=== PATIENT | male | born 1970 | race Caucasian/White ===

== ENCOUNTER 2021-03-01 12:24 | Inpatient (IN) | payer OTHER, SELFPAY ==
[2021-03-01] VITALS (16 sets, daily range): BP systolic 164–203; BP diastolic 109–122; PULSE 58–128; RESP 16–20; TEMP 36.6–37.1; O2SAT 95–98; BMI 32.8; BMI 33.2
--- NOTE | 2021-03-01 12:34 | CT_ITS ---
STUDY: CT HEAD STROKE PROTOCOL W/O CONTRAST INJECTION REASON FOR EXAM: Male, 51 years old. Neuro deficit, acute, stroke suspected RADIATION DOSAGE (If Supplied By Facility): CTDIvol = ( 44.99 ) mGy, DLP = ( 779.24 ) mGycm TECHNIQUE: Transaxial CT imaging of the brain was performed without administration of intravenous contrast material. Individualized dose optimization techniques were used for this CT. COMPARISON: No relevant priors. FINDINGS: Normal soft tissue structures. Normal calvarium. Normal size ventricles and extra-axial spaces for the patient''s age. Normal white matter tracts of the cerebral hemispheres. Normal basal ganglia and thalami. Normal brainstem. Normal cerebellum. There is no intracranial hemorrhage. There are no findings of an acute ischemic infarction. Normal visualized paranasal sinuses. CT/STROKE Brain/Head without Cont IMPRESSION: Normal unenhanced CT scan of the brain. N.B. : The above information has been verbally conveyed by Lincoln Hopkins MD to Noel Stark on 03/01/2021 13:13:57 (ET). Electronically Signed: Lincoln Hopkins MD at 13:15 EDT , Service support ,
--- NOTE | 2021-03-01 12:34 | EKG12_ITS ---
Test Reason : LEG NUMBNESS Blood Pressure : / mmHG Vent. Rate : 093 BPM Atrial Rate : 093 BPM P-R Int : 154 ms QRS Dur : 088 ms QT Int : 334 ms P-R-T Axes : 050 080 012 degrees QTc Int : 415 ms Normal sinus rhythm Normal ECG Confirmed by KIKE BROWNING, NAHUN ([id number]), graphic editor BELL HERRERA ([id number]) on 03/05/2021 9:13:09 AM Referred By: MED Confirmed By:DOROTHY STOKES MD
--- NOTE | 2021-03-01 12:36 | ED.DCSUM_ITS ---
History of Present Illness Chief Complaint: Hypertension Informant: Patient Onset: Days Context: Gradual Onset Timing: Continuous Current Severity: Moderate Maximum Severity: Moderate Narrative: The patient is a 51-year-old male with history of hypertension, who is not on any medications, but presents to the emergency department with elevated blood pressure and left leg weakness and numbness. The patient 3 days ago, he began to have some numbness down his left leg. He states that sometimes he will feel like his thigh is painful. He states is difficult to walk, because he is a hard time finding his leg in space. He states he kicked something with his toe and did not even notice it. He states that over the past few days, he is also had a mild headache and intermittent blurry vision. The patient does have history of hypertension, but again has not been taking medications. He states has not seen a doctor since 2010. He did have prior similar paresthesias in the leg which she had injections for which seemed to help. He denies any trauma. He denies any difficulty urinating or moving his bowels. He does have have a family history of intracerebral hemorrhage. Prior similar symptoms: Yes Recent Illness/Hospitalization: No Past Medical History - Allergies and Home Meds Allergies/Adverse Reactions: Allergies No Known Allergies Allergy (Verified 03/01/21 12:28) Prior records reviewed: Yes Past Medical History: - - HTN Surgical History: noncontributory Smoking Status: Current every day smoker Review of Systems General: Denies: Chills, Fever, Sweats Eyes: Reports: Visual changes - bilaterally. Denies: Diplopia ENT: Denies: Rhinorrhea, Sore throat Cardiovascular: Denies: Chest pain, Palpitations Respiratory: Denies: Dyspnea, Cough, Dyspnea on exertion Gastrointestinal: Denies: Abdominal pain, Nausea, Vomiting, Diarrhea, Melena, Hematochezia Genitourinary: Denies: Dysuria, Hematuria, Frequency Musculoskeletal: Denies: Back pain, Extremity Pain Skin: Denies: Rash, Wounds Neurological: Reports: Parasthesia, Numbness. Denies: Headache, Weakness Physical Exam Vital Signs/Narrative: Vital Signs Temp Pulse Resp BP Pulse Ox 03/01/21 12:25 98.0 F 128 H 18 203/115 H 95 Inital Vital Signs reviewed: Yes General: Well nourished, Well developed, No Acute Distress Head: Normocephalic, Atraumatic Eyes: Perrl, EOMI ENT: Moist mucous membranes, No rhinorrhea Neck: Supple, Nontender Cardiovascular: Regular rate, Regular rhythm, No murmurs Respiratory: No distress, CTA bilaterally, Chest nontender Abdomen: Soft, Nontender, Nondistended, Normal bowel sounds Back: Nontender, Normal Inspection Extremities: Nontender, No edema Skin: Normal color, No rash Neurological: Alert, Oriented x3, Cranial nerves II-XII grossly intact, Normal Strength, Parasthesia, - - Patient is able to oppose gravity with his left lower extremity. He does admit to sensation of weakness. He does have diminished sensation. His NIH is 1. Psychological: Normal affect, Normal Mood Diagnostic/Tx/Re-eval Clinical Impression(s) from Imaging Studies Brain CT 03/01/21 12:34 IMPRESSION: Normal unenhanced CT scan of the brain. N.B. : The above information has been verbally conveyed by Lincoln Hopkins MD to Noel Stark on 03/01/2021 13:13:57 (ET). Electronically Signed: Lincoln Hopkins MD at 13:15 EDT , Service support , ADDENDUM: 03/01/21 1322 IMPRESSION: Normal unenhanced CT scan of the brain. N.B. : The above information has been verbally conveyed by Lincoln Hopkins MD to Noel Stark on 03/01/2021 13:13:57 (ET). Electronically Signed: Lincoln Hopkins MD at 13:15 EDT , Service support , Chest X-Ray 03/01/21 12:59 IMPRESSION: Normal x-ray examination of the chest. Electronically Signed: Lincoln Hopkins MD at 13:15 EDT , Service support , Abnormal Lab Results 04/03/01/21 03/01/21 12:40 12:40 12:40 WBC 9.3 RBC 5.35 Hgb 16.4 Hct 48.0 MCV 89.7 MCH 30.7 MCHC 34.2 RDW Std Deviation 43.6 RDW Coeff of Reynaldo 13.4 Plt Count 238 MPV 9.9 Immature Gran % (Auto) 0.600 Neut % (Auto) 70.6 H Lymph % (Auto) 20.7 [place] % (Auto) 6.4 Eos % (Auto) 1.1 Baso % (Auto) 0.6 Absolute Neuts (auto) 6.6 Absolute Lymphs (auto) 1.93 Nucleated RBC % 0 PT 12.9 INR 1.0 APTT 26.0 Sodium 137 Potassium 3.8 Chloride 105 Carbon Dioxide 28.0 Anion Gap 4 L BUN 10 Creatinine 1.02 Estim Creat Clear Calc 81.00 Est GFR (MDRD) Af Amer 99 Est GFR (MDRD) Non-Af 82 BUN/Creatinine Ratio 9.8 L Glucose 115 H Calcium 9.1 Troponin I < 0.015 POC Glucose 03/01/21 12:49 WBC RBC Hgb Hct MCV MCH MCHC RDW Std Deviation RDW Coeff of Reynaldo Plt Count MPV Immature Gran % (Auto) Neut % (Auto) Lymph % (Auto) [place] % (Auto) Eos % (Auto) Baso % (Auto) Absolute Neuts (auto) Absolute Lymphs (auto) Nucleated RBC % PT INR APTT Sodium Potassium Chloride Carbon Dioxide Anion Gap BUN Creatinine Estim Creat Clear Calc Est GFR (MDRD) Af Amer Est GFR (MDRD) Non-Af BUN/Creatinine Ratio Glucose Calcium Troponin I POC Glucose 116 H - Rhythm Strip Rhythm Strip: Sinus Rhythm Rate: 90 Ectopy: None - EKG Initial EKG Interpretation: Sinus Rhythm, No Acute Injury Pattern Prior: No Prior - Medical Decision Making The patient presents with 3 days of leg weakness. Is not been intermittent. He is also been markedly hypertensive. His NIH is 1 for the paresthesias of the leg. I cannot appreciate any weakness. He has normal pulses. He has normal reflexes. Patient underwent stroke work-up. Stroke team was not activated given greater than 24 hours of symptoms as he was not a TPA candidate. Noncontrast head CT shows no acute abnormality. Metabolic work-up was also unremarkable. However, given the patient's family history of cerebral hemorrhage, rather significant hypertension history without medication, and focal neurologic symptoms I do feel it would benefit from observation. The patient was discussed with the hospitalist. Impression 1. Hypertension 2. Left leg paresthesias
[2021-03-01 12:49] LABS: Absolute Lymphocyte Count 1.93 X10^3/uL (0.83-4.51); Absolute Neutrophil Count 6.6 X10^3/uL (2.0-7.7); Basophil# 0.06 X10^3/uL; Basophil% 0.6 % (0-1); Eosinophils% 1.1 % (0-5); Hemoglobin 16.4 g/dL (13.0-16.5); Lymphocyte # 1.93 X10^3/ul (0.83-4.51); Lymphocyte % 20.7 % (19-41); Mean Corp Hgb Conc 34.2 g/dL (32-36); Mean Corpuscular Hgb 30.7 pg (27.0-32.0); Mean Corpuscular Volume 89.7 fL (80-94); Mean Platelet Vol. 9.9 fl (6.2-12.0); Monocyte% 6.4 % (0-10); NRBC Flagged by Analyzer 0 % (0-5); Neutrophil # 6.56 X10^3/uL (2.7-7.7); Neutrophil % 70.6 % (47-70); Platelet Count 238 K/mm3 (150-450); RBC Distribution Width CV 13.4 % (11.6-14.6); RBC Distribution Width SD 43.6 fl (35.1-43.9); Red Blood Count 5.35 M/mm3 (4.6-6.2); White Blood Count 9.3 K/mm3 (4.4-11.0)
[2021-03-01 12:57] LABS: Prothrombin Time (Protime)PT. 12.9 SECONDS (11.7-14.9)
--- NOTE | 2021-03-01 12:57 | NURSING ---
NO OLD EKGS
--- NOTE | 2021-03-01 12:59 | RAD_ITS ---
STUDY: X-RAY CHEST REASON FOR EXAM: Male, 51 years old. Neuro deficit, acute, stroke suspected TECHNIQUE: Single AP portable view of the chest. COMPARISON: None. FINDINGS: EKG electrodes are seen. The lungs are clear and expanded. There is no demonstrated pleural abnormality. Normal size heart. Normal mediastinum and girish. Normal visualized pulmonary arteries. Normal visualized aortic arch and descending thoracic aorta. Normal visualized thoracic spine. Normal visualized ribs, clavicles, and shoulders. There is no demonstrated abnormality of the visualized soft tissue structures of the upper abdomen. RAD/Chest 1 View IMPRESSION: Normal x-ray examination of the chest. Electronically Signed: Lincoln Hopkins MD at 13:15 EDT , Service support ,
[2021-03-01 13:01] LABS: Bedside Glucose 116 mg/dL (70-110)
[2021-03-01 13:05] LABS: Anion Gap 4 (5-15); BUN 10 mg/dL (7-18); BUN/Creat Ratio 9.8 RATIO (10-20); Calcium,Total 9.1 mg/dL (8.5-10.1); Chloride 105 mmol/L (98-107); Creatinine, Serum 1.02 mg/dL (0.70-1.30); EST Glomerular Filtration Rate 82 mL/min (>60); Est Glom Filt Rate - Afr Amer 99 mL/min (>60); Glucose 115 mg/dL (74-106); Potassium 3.8 mmol/L (3.5-5.1); Sodium Level 137 mmol/L (136-145)
--- NOTE | 2021-03-01 13:37 | NURSING ---
PCU LEFT LEG WEAKNESS ASHELFAH
--- NOTE | 2021-03-01 13:48 | HP.PCM_ITS ---
Problem List (1) Weakness of left lower extremity Status: Acute (2) Paresthesia of left lower extremity Status: Acute (3) Hypertensive urgency Status: Acute (4) Hypertension Status: Chronic (5) Alcohol abuse Status: Chronic (6) Tobacco abuse Status: Chronic History of Present Illness Date of Admission: 03/01/21 Chief Complaint: Elevated blood pressure, left leg weakness and numbness. The patient is a 51 year old M with past medical history as mentioned above presented to the emergency room because of elevated blood pressure, left leg weakness and numbness. Symptoms started 3 days ago, initially started with some discomfort on the left thigh associated with tingling and numbness, started to go down to the left leg which also became numb and tingly and has been constant since then and he has been difficulty ambulating. He mentioned that his blood pressure has been elevated as well. He had a history of hypertension that was diagnosed years ago but never started on medications. He reported mild throbbing headache that has been going on for the last couple of days, no aggravating or relieving factors. He stated that he did not see a doctor since 2010. He denied trauma. He did mention that he had some back pain in the past but not today. He stated that he had similar paresthesia in the past for which he received back injections which seemed to help. Again today, he denied any back pain. In the emergency department, patient was afebrile, tachycardic, blood pressure was highly elevated, it was 203/115. Routine blood work was unremarkable. EKG revealed normal sinus rhythm, normal TX interval, normal QRS, no acute ischemic changes. Troponin was negative. Chest x-ray showed no acute findings. CT scan brain without contrast showed no acute infarct or hemorrhage. Patient is being admitted for hypertensive urgency and left lower extremity paresthesia and weakness. Past Medical History Past Medical History (Chronic Problems): Chronic Problems Hypertension (Chronic) Alcohol abuse (Chronic) Tobacco abuse (Chronic) Allergies No Known Allergies Allergy (Verified 03/01/21 12:28) Home Medications: Ambulatory Orders Medication Instructions Recorded Acetaminophen [Tylenol Extra 500 mg PO DAILY PRN 03/01/21 Strength] Aspirin/Caffeine [Back-Body Pain 2 - 3 tablet PO TID PRN 03/01/21 Reliever Caplet] Surgical History: noncontributory Psychiatric History: No pertinent psych hx Lives: Spouse/ Significant Other Smoking Status: Current every day smoker Tobacco Use: Cigarettes Alcohol: Heavy Drugs: None - *Family History Maternal History Items: No pertinent history Paternal History Items: No pertinent history Review of Systems Constitutional: Denies: Anorexia, Chills, Fever, Weakness Eyes: Denies: Blurred vision, Double vision, Drainage, Redness HEENT: Reports: Head Aches. Denies: Difficulty Hearing, Ear Pain, Eye Pain, Nasal Congestion, Sore Throat Cardiovascular: Denies: Chest Pain, Chest Pressure, Chest Tightness, Edema, Palpitations, Syncope Respiratory: Denies: Cough, Pleuritic Pain, Shortness of Breath, Sputum production, Wheezing Gastrointestinal: Denies: Abdominal Pain, Constipation, Diarrhea, Nausea, Vomiting Genitourinary: Denies: Dysuria, Frequency, Hematuria Musculoskeletal: Denies: Arm Pain, Back Pain, Foot Pain Skin: Denies: Dryness, Rash Neurological: Reports: Focal weakness, Headaches, Numbness, Tingling. Denies: Balance problems, Double vision, Change in Speech, Slurred speech, Confusion, Incoordination Psychiatric: Denies: Anxiety, Depression Endocrine: Denies: Change in Body Habitus, Polydipsia, Polyuria VTE Information - Inpt Only VTE Present on Admission: No VTE Mechan Device Prophylaxis: None VTE Pharm Prophylaxis ordered?: No Patient Problems: Active and Suspected Problems Weakness of left lower extremity (Acute) Paresthesia of left lower extremity (Acute) Hypertensive urgency (Acute) - Physical Exam Vitals/I&O's: Vital Signs Temp Pulse Resp BP Pulse Ox 98.0 F 104 H 18 170/111 H 98 03/01/21 12:25 03/01/21 13:30 03/01/21 13:30 03/01/21 13:30 03/01/21 13:30 Oxygen Delivery Method Room Air Weight: 210 lb Body Mass Index (BMI) 32.8 Finger Stick Blood Glucose 116 General: Alert, Oriented x3, Cooperative, No apparent distress HEENT: Atraumatic, PERRLA, EOMI, Normocephalic Oral: Moist Mucosa, No Gingival or Mucosal Lesions/ Ulcerations Neck: Supple, No JVD, Negative Carotid Bruits, Trachea Midline, Thyroid Normal Size and Texture Lungs: Clear to auscultation, Normal air movement, No rhonchi, No wheeze, No rales Cardiovascular: Regular rate, Regular Rhythm, Normal S1, Normal S2, PMI Normal Abdomen: Bowel Sounds Present, Soft, Non Tender, Non-Distended, No Hepato- splenomegaly Extremities: No clubbing, No cyanosis, No edema Skin: No rashes, No breakdown Lymphatic: No Cervical, Supraclavicular, or Inguinal Adenopathy Neurological: Cranial nerves II-XII grossly intact, Sensory exam intact to light touch and pain, - - Power on the right lower extremity is 5.5, normal. Patient was able to lift his left lower extremity against gravity with difficulty. Psych/Mental Status: Normal Affect, Appropriate, Alert and oriented to time, place, person, mood and affect Laboratory Results 03/01/21 12:40: WBC 9.3, RBC 5.35, Hgb 16.4, Hct 48.0, MCV 89.7, MCH 30.7, MCHC 34.2, RDW Std Deviation 43.6, RDW Coeff of Reynaldo 13.4, Plt Count 238, MPV 9.9, Immature Gran % (Auto) 0.600, Neut % (Auto) 70.6 H, Lymph % (Auto) 20.7, [place] % (Auto) 6.4, Eos % (Auto) 1.1, Baso % (Auto) 0.6, Absolute Neuts (auto) 6.6, Absolute Lymphs (auto) 1.93, Nucleated RBC % 0 03/01/21 12:40: PT 12.9, INR 1.0, APTT 26.0 03/01/21 12:40: Sodium 137, Potassium 3.8, Chloride 105, Carbon Dioxide 28.0, Anion Gap 4 L, BUN 10, Creatinine 1.02, Estim Creat Clear Calc 81.00, Est GFR (MDRD) Af Amer 99, Est GFR (MDRD) Non-Af 82, BUN/Creatinine Ratio 9.8 L, Glucose 115 H, Calcium 9.1, Troponin I < 0.015 03/01/21 12:49: POC Glucose 116 H Clinical Impression(s) from Imaging Studies Brain CT 03/01/21 12:34 IMPRESSION: Normal unenhanced CT scan of the brain. N.B. : The above information has been verbally conveyed by Lincoln Hopkins MD to Noel Stark on 03/01/2021 13:13:57 (ET). Electronically Signed: Lincoln Hopkins MD at 13:15 EDT , Service support , ADDENDUM: 03/01/21 1322 IMPRESSION: Normal unenhanced CT scan of the brain. N.B. : The above information has been verbally conveyed by Lincoln Hopkins MD to Noel Stark on 03/01/2021 13:13:57 (ET). Electronically Signed: Lincoln Hopkins MD at 13:15 EDT , Service support , Chest X-Ray 03/01/21 12:59 IMPRESSION: Normal x-ray examination of the chest. Electronically Signed: Lincoln Hopkins MD at 13:15 EDT , Service support , Current Medications Labetalol HCl (Labetalol (Prefilled) 20 Mg/4 Ml) 20 mg IV X1 PRN PRN Reason: BLOOD PRESSURE Assessment/Plan All Active Problems Weakness of left lower extremity (Acute) Paresthesia of left lower extremity (Acute) Hypertensive urgency (Acute) This is a 51 years old male patient presented to the emergency room because of elevated blood pressure, left lower extremity weakness and numbness and is being admitted for evaluation and treatment. #1 hypertensive urgency: Patient had a history of hypertension, never been on treatment. Blood pressure in the ED was 203/115. EKG reviewed, was unremarkable. Troponin is negative. Plan: Admit to PCU, cardiac monitoring, will bring blood pressure down gradually, start metoprolol twice daily, lisinopril/HCTZ daily, check TSH, lipid profile, hemoglobin A1c, start baby aspirin, Lipitor, 2D echocardiogram, gentle IV fluids for hydration, Tylenol as needed, Zofran as needed, PT OT evaluation and treatment. #2 left lower extremity paresthesias/weakness: Unclear etiology, acute stroke cannot be ruled out. Patient did have a history of back pain with injections but he denied any back pain today. CT scan brain showed no acute findings. Plan: NIH stroke scale, start aspirin and Lipitor, MRI brain, MRI lumbar spine. If the MRI brain came back positive, stroke work-up need to be completed. #3 hypertension: Diagnosed years ago, never been on medications. Plan as above. #4 alcohol abuse: Patient drinks every day. Plan: Thiamine, folic acid, Ativan as needed, CIWA protocol. #5 tobacco abuse: NicoDerm patch if desired. #6 DVT prophylaxis: Low risk patient, no prophylaxis indicated. This note was generated with [employer] dictation software. It may contain incorrect words, spelling, and punctuation that were not noted in checking the note before signing. Inpatient E&M: 21506 Init Hosp L3
--- NOTE | 2021-03-01 14:58 | ECHOD_ITS ---
Reason For Study: TIA/CVA Procedure This was a 2D Doppler, Color Flow transthoracic echocardiogram. The study was technically difficult. Exam performed portable in patient room. Left Ventricle Normal LV size. Moderate concentric left ventricular hypertrophy. Left ventricular systolic function is normal. The estimated ejection fraction is 65 %. Transmitral doppler flow suggestive of impaired relaxation of left ventricle. No regional wall motion abnormalities noted. Right Ventricle Normal RV size. Normal systolic function. Atria Normal left atrium. Normal right atrium. No doppler evidence for ASD. Bubble contrast study negative for right to left interatrial shunt. Mitral Valve There is no mitral annular calcification. Normal mitral valve. Mild-Moderate (1-2+) mitral valve insufficiency. Tricuspid Valve Normal tricuspid valve. Trivial tricuspid valve insufficiency. Right ventricular systolic pressure estimated to be 30 mmHg. Aortic Valve Trisinus/trileaflet aortic valve. Mild focal aortic valve thickening. Trivial aortic valve insufficiency. Pulmonic Valve The pulmonic valve is not well visualized. Trivial pulmonic valve insufficiency. Great Vessels Normal sized aortic root. Pericardium/Pleural No pericardial effusion. Medication Performed a rapid injection of agitated mix of 9 cc saline and 1cc air to assess for atrial septal defect. MMode/2D Measurements & Calculations LVIDd: 4.0 cm IVSd: 1.5 cm Ao root diam: 3.8 cm LVIDs: 2.7 cm LVPWd: 1.4 cm RVDd: 2.6 cm FS: 32.3 % LAV(MOD-bp): 34.7 ml LVAd ap4: 25.9 cm2 SV(MOD-sp4): 49.7 ml LAV(MOD-bp) Indexed: 16.8 ml/m2 EDV(MOD-sp4): 74.7 ml LAV(MOD-sp2): 27.5 ml EDV(sp4-el): 78.8 ml LAV(MOD-sp4): 41.9 ml LVAs ap4: 13.1 cm2 ESV(MOD-sp4): 25.0 ml ESV(sp4-el): 25.1 ml EF(MOD-sp4): 66.5 % EF(sp4-el): 68.2 % SV(sp4-el): 53.8 ml LA A4 area: 15.3 cm2 LA dimension(2D): 4.1 cm RA A4 area: 8.8 cm2 Doppler Measurements & Calculations MV E max pepe: 52.4 cm/sec Lat Peak E' Pepe: 7.4 cm/sec Med Peak E' Pepe: 5.7 cm/sec MV A max pepe: 96.4 cm/sec E/E' lat: 7.1 E/E' med: 9.1 MV E/A: 0.54 Ao V2 max: 126.8 cm/sec AI max pepe: 254.7 cm/sec LV V1 max: 116.2 cm/sec Ao max P.4 mmHg AI max P.0 mmHg LV V1 max P.4 mmHg Ao V2 mean: 88.1 cm/sec Ao mean P.4 mmHg AI dec slope: 158.8 cm/sec2 Ao V2 VTI: 19.9 cm AI P1/2t: 469.7 msec PA V2 max: 107.9 cm/sec TR max pepe: 259.5 cm/sec TR max P.9 mmHg ECHO/Echo Complete Interpretation Summary The study was technically difficult. Left ventricular systolic function is normal. The estimated ejection fraction is 65 %. Moderate concentric left ventricular hypertrophy. Mild-Moderate (1-2+) mitral valve insufficiency. Trivial tricuspid valve insufficiency. Mild focal aortic valve thickening. Trivial aortic valve insufficiency. Trivial pulmonic valve insufficiency. Right ventricular systolic pressure estimated to be 30 mmHg. Transmitral doppler flow suggestive of impaired relaxation of left ventricle Bubble contrast study negative for right to left interatrial shunt. Ordering Physician: Michelle Lozoya Performed By: Marie Fay, TYRONE, RVT
--- NOTE | 2021-03-01 14:58 | MRI_ITS ---
STUDY: MRI BRAIN WITHOUT CONTRAST REASON FOR EXAM: Male, 51 years old. Left leg paresthesia and weakness TECHNIQUE: Standardized multiplanar fat and water weighted pulse sequences were obtained. COMPARISON: [address] head FINDINGS: Brain parenchyma is intact without focal lesions, mass effect, extra parenchymal fluid collections, hydrocephalus or herniation. Major vascular flow structures are intact. Craniocervical junction is unremarkable. MRI/Brain without Contrast IMPRESSION: 1. Normal brain.. Electronically Signed: Keri Lara MD at 17:55 EDT Tel , Service support ,
--- NOTE | 2021-03-01 14:58 | MRI_ITS ---
STUDY: MRI LUMBAR SPINE WITHOUT CONTRAST REASON FOR EXAM: Male, 51 years old. Left leg paresthesia, weakness -- History of back pain and back injections. TECHNIQUE: Standardized fat and water weighted pulse sequences were obtained in the sagittal and axial planes. was administered for the contrast portion of the examination. COMPARISON: None FINDINGS: T12-L1: Normal endplates. Normal disc height, hydration and morphology. Normal bilateral facet joints. Normal central canal and bilateral lateral recesses. Normal bilateral intervertebral neural foramina. Normal lumbar lordosis. There is no substantial scoliosis. Normal conus medullaris that terminates at the L1-2: Normal endplates. Normal disc height, hydration and mild degenerative morphology. Normal bilateral facet joints. Normal central canal and bilateral lateral recesses. Normal bilateral intervertebral neural foramina. L2-3: Normal endplates. Normal disc height, hydration and mild degenerative morphology. Mildly degenerated bilateral facet joints. Normal central canal and bilateral lateral recesses. Normal bilateral intervertebral neural foramina. L3-4: Normal endplates. Normal disc height, mildly altered hydration and morphology. Degenerated bilateral facet joints. Normal central canal and bilateral lateral recesses. There is moderate bilateral foraminal stenosis. L4-5: Normal endplates. Normal disc height, hydration and morphology. Degenerated bilateral facet joints. Normal central canal and bilateral lateral recesses. There is moderate bilateral foraminal stenosis. L5-S1: There is probably left L5 lysis. Normal endplates. Normal disc height, hydration and degenerative morphology. Degenerated bilateral facet joints. Normal central canal and bilateral lateral recesses. Normal bilateral intervertebral neural foramina. Normal visualized sacral ala. Normal visualized paraspinous soft tissue structures. MRI/Spine Lumbar (Routine) IMPRESSION: 1. Probable left L5 lysis without listhesis. 2. Patent thecal sac. 3. Multilevel facet and disc degeneration with moderate lower lumbar foraminal stenoses bilaterally. Electronically Signed: Keri Lara MD at 20:21 EDT Tel , Service support ,
[2021-03-01 15:53] LABS: Hemoglobin A1c 5.2 % (3.8-5.6)
[2021-03-01] MEDS: 0.9% Normal Saline 1,000 ML 75 ML IV (15:53)
[2021-03-01 16:05] LABS: Cholesterol 267 mg/dL (200); High Density Lipoprotein 47 mg/dL; Thyroid Stim Hormone (TSH) 1.01 uIU/mL (0.358-3.74); Triglycerides 466 mg/dL
[2021-03-01] MEDS: Acetaminophen 325 MG Tablet 650 MG PO (20:53)
[2021-03-01] MEDS: Metoprolol Tartrate 25 MG Tablet PO (20:54)
[2021-03-01] MEDS: Atorvastatin Calcium 80 MG Tablet PO (20:54)
[2021-03-02] VITALS (9 sets, daily range): BP systolic 156–193; BP diastolic 98–120; PULSE 66–89; RESP 14–16; TEMP 35.9–36.8; O2SAT 93–96
[2021-03-02] MEDS: hydrALAZINE 20 MG/ML Vial 5 MG IV (03:53)
[2021-03-02] MEDS: Metoprolol Tartrate 25 MG Tablet PO (08:57)
[2021-03-02] MEDS: Thiamine Hydrochloride 100 MG Tablet PO (08:57)
[2021-03-02] MEDS: Aspirin 81 MG TAB.CHEW PO (08:57)
[2021-03-02] MEDS: Folic Acid 1 MG Tablet PO (08:58)
[2021-03-02] MEDS: Lisinopril 20 MG Tablet PO (08:59)
[2021-03-02] MEDS: hydroCHLOROthiazide 12.5mg 12.5 MG PO (08:59)
--- NOTE | 2021-03-02 09:20 | CASEMGMT ---
RN CM Face to Face with patient for initial transition planning/care coordination assessment. RN CM introduced self and role at [facility]. Patient lying in bed, alert and oriented. Patient willing to participate in assessment and is able to answer all questions appropriately. Care providers, pharmacy, and demographics verified. Patient wishes to discharge home, denies need for home health at this time. Patient states he has no further needs or concerns at this time. CM to follow for discharge planning needs that may arise. PCP: No PCP, patient provided with list of PCP in [facility] Specialists: none Preferred [facility]acy: [facility] Insurance: MM Prescription Benefit: yes Living Will/HPOA: yes, sister Esmer LNOK: mother, sister Living Arrangements: Patient lives alone in a single story home with 1 step to enter the home. Patient is independent and able to ambulate stairs. Transportation: self/mother DME/HHC: Patient denies DME or previous HHC. No needs identified at this time. Disposition Plan: Patient to discharge home with family support and follow-up plans in place. Brittany DONG, RN, CM
--- NOTE | 2021-03-02 12:54 | DCINST_ITS ---
- Discharge Diagnoses Current Active Problems: Current Active and Chronic Problems Weakness of left lower extremity (Acute) Paresthesia of left lower extremity (Acute) Hypertensive urgency (Acute) Hypertension (Chronic) Alcohol abuse (Chronic) Tobacco abuse (Chronic) You will use the following diet at home:: Cardiac Your food should be the consistency of: Regular Your liquids should be the consistency of: Regular/Thin Discharge Activity: Return to Normal Activity Call your doctor if you observe: Fever of 101 or Higher, Shortness of breath, Dizziness, Fainting spells, Swelling in the ankles, Chest pain, Increased palpitations (irregular heartbeat) Instructions: Controlling High Blood Pressure, ED Heart Disease Risk Factors, ED High Blood Pressure ... Additional Instructions: Find a PCP and follow-up in 1 to 2 weeks to monitor your kidney function secondary to the medications you have been discharged on. Allergies/Adverse Reactions: Allergies No Known Allergies Allergy (Verified 03/01/21 12:28) Medications to take at Discharge Acetaminophen [Tylenol] 500 mg PO DAILY PRN 03/01/21 Aspirin/Caffeine [Back-Body Pain 500-32.5MG Cplt] 2 - 3 tablet PO TID PRN 03/01/21 Aspirin [Aspirin, Baby] 81 mg PO DAILY@0800 #30 tab.chew 03/02/21 Atorvastatin Calcium [Lipitor] 40 mg PO QHS #30 tab 03/02/21 Lisinopril/Hydrochlorothiazide [Lisinopril-Hctz 10-12.5 mg Tab] 1 each PO DAILY #30 tablet 03/02/21 The following prescriptions were given: Aspirin [Aspirin, Baby] 81 mg PO DAILY@0800 #30 tab.chew Transmission Status: Pending to [facility]/pharmacy #[id number] Atorvastatin Calcium [Lipitor] 40 mg PO QHS #30 tab Transmission Status: Pending to [facility]/pharmacy #[id number] Lisinopril/Hydrochlorothiazide [Lisinopril-Hctz 10-12.5 mg Tab] 1 each PO DAILY #30 tablet Transmission Status: Pending to [facility]/pharmacy #[id number] Primary Care Physician: Care Physician,No Primary [Primary Care Provider] - Please follow up with your Primary Care Physician in: 3-5 days Test Results: Test results from this visit will be discussed in further detail at your follow- up appointment, if applicable.
--- NOTE | 2021-03-02 13:45 | DS.PCM_ITS ---
Discharge Date and Diagnosis - Problem List Patient Problems: Active and Suspected Problems Weakness of left lower extremity (Acute) Paresthesia of left lower extremity (Acute) Hypertensive urgency (Acute) Date of Admission: 03/01/21 Date of Discharge: 03/02/21 - Primary Discharge Diagnosis Acute Problems: Active Problems Weakness of left lower extremity (Acute) Paresthesia of left lower extremity (Acute) Hypertensive urgency (Acute) - Secondary Discharge Diagnosis Chronic Problems: Chronic Problems Hypertension (Chronic) Alcohol abuse (Chronic) Tobacco abuse (Chronic) Hospital Course and Treatment Imaging Results: Clinical Impression(s) from Imaging Studies Brain CT 03/01/21 12:34 IMPRESSION: Normal unenhanced CT scan of the brain. N.B. : The above information has been verbally conveyed by Lincoln Hopkins MD to Noel Stark on 03/01/2021 13:13:57 (ET). Electronically Signed: Lincoln Hopkins MD at 13:15 EDT , Service support , ADDENDUM: 03/01/21 1322 IMPRESSION: Normal unenhanced CT scan of the brain. N.B. : The above information has been verbally conveyed by Lincoln Hopkins MD to Noel Stark on 03/01/2021 13:13:57 (ET). Electronically Signed: Lincoln Hopkins MD at 13:15 EDT , Service support , Chest X-Ray 03/01/21 12:59 IMPRESSION: Normal x-ray examination of the chest. Electronically Signed: Lincoln Hopkins MD at 13:15 EDT , Service support , Brain MRI 03/01/21 14:58 IMPRESSION: 1. Normal brain.. Electronically Signed: Keri Lara MD at 17:55 EDT Tel , Service support , Echocardiogram 03/01/21 14:58 Interpretation Summary The study was technically difficult. Left ventricular systolic function is normal. The estimated ejection fraction is 65 %. Moderate concentric left ventricular hypertrophy. Mild-Moderate (1-2+) mitral valve insufficiency. Trivial tricuspid valve insufficiency. Mild focal aortic valve thickening. Trivial aortic valve insufficiency. Trivial pulmonic valve insufficiency. Right ventricular systolic pressure estimated to be 30 mmHg. Transmitral doppler flow suggestive of impaired relaxation of left ventricle Bubble contrast study negative for right to left interatrial shunt. ____ Ordering Physician: Michelle Lozoya Performed By: Marie Fay, RDCS, RVT Lumbar Spine MRI 03/01/21 14:58 IMPRESSION: 1. Probable left L5 lysis without listhesis. 2. Patent thecal sac. 3. Multilevel facet and disc degeneration with moderate lower lumbar foraminal stenoses bilaterally. Electronically Signed: Keri Lara MD at 20:21 EDT Tel , Service support , Operations: None Procedures: 2-D Echocardiogram Summary of Care Provided: Per HPI: The patient is a 51 year old M with past medical history as mentioned above presented to the emergency room because of elevated blood pressure, left leg weakness and numbness. Symptoms started 3 days ago, initially started with some discomfort on the left thigh associated with tingling and numbness, started to go down to the left leg which also became numb and tingly and has been constant since then and he has been difficulty ambulating. He mentioned that his blood pressure has been elevated as well. He had a history of hypertension that was diagnosed years ago but never started on medications. He reported mild throbbing headache that has been going on for the last couple of days, no aggravating or relieving factors. He stated that he did not see a doctor since 2010. He denied trauma. He did mention that he had some back pain in the past but not today. He stated that he had similar paresthesia in the past for which he received back injections which seemed to help. Again today, he denied any back pain. In the emergency department, patient was afebrile, tachycardic, blood pressure was highly elevated, it was 203/115. Routine blood work was unremarkable. EKG revealed normal sinus rhythm, normal OH interval, normal QRS, no acute ischemic changes. Troponin was negative. Chest x-ray showed no acute findings. CT scan brain without contrast showed no acute infarct or hemorrhage. Patient is being admitted for hypertensive urgency and left lower extremity paresthesia and weakness. Hospital Course: 1. hypertensive urgency with left lower extremity paresthesia and weakness- 51-year-old male who does not see a doctor and works at a grocery store presented with increasing headaches as well as left lower extremity paresthesias and weakness. These have resolved on the day of discharge an MRI of his brain was unremarkable for a stroke. He did have an echo which showed a normal EF. He was found to have severe hypertension with a systolic in the 200s. He was given multiple medications to bring this down and initiated on metoprolol twice daily as well as lisinopril and hydrochlorothiazide daily. He is feeling much better today and his left lower extremity findings are gone. His blood pressure is much better controlled and he was discharged on lisinopril 10 mg daily as well as hydrochlorothiazide 12.5 mg daily and a combination pill. I elected not to continue his metoprolol secondary to the concern of decreasing his blood pressure too much given the fact that he is probably been living with systolics over 180 likely for years. I also discussed with him the importance of following with a primary care physician as an outpatient. Given the fact that he is started on lisinopril and hydrochlorothiazide, he will need to have outp atient renal function monitoring to make adjustments with his medications. Also his triglycerides are elevated at 466 with a total cholesterol 267. He was discharged on Lipitor 40 mg p.o. daily as well as an aspirin. Once again I discussed with him the importance of following up with his primary care doctor to have these labs and medications monitored and adjusted. He expressed understanding of the risk and benefits of going home and wants to go home today. 2. Alcohol abuse/tobacco abuse-counseled on cessation, has not gone through withdrawal while here Patient Problems: Active and Suspected Problems Weakness of left lower extremity (Acute) Paresthesia of left lower extremity (Acute) Hypertensive urgency (Acute) - Physical Exam Vitals/I&O's: Vital Signs Temp Pulse Resp BP Pulse Ox 98.2 F 73 14 156/98 H 95 03/02/21 11:12 03/02/21 11:12 03/02/21 11:12 03/02/21 11:12 03/02/21 11:12 Oxygen Delivery Method Room Air Weight: 211 lb 14.4 oz Body Mass Index (BMI) 33.2 Finger Stick Blood Glucose 116 Intake and Output for Last 24 Hours 02/28/21 03/01/21 03/02/21 23:59 23:59 23:59 Intake Total 240 / 460 1293.75 / 1293.75 Balance 240 / 460 1293.75 / 1293.75 General: Alert, Oriented x3, Cooperative, No apparent distress HEENT: Atraumatic, PERRLA, EOMI, Normocephalic Oral: Moist Mucosa Neck: Supple, No JVD Lungs: Clear to auscultation, Normal air movement, No rhonchi, No wheeze, No rales Cardiovascular: Regular rate, Regular Rhythm, Normal S1, Normal S2, No murmurs Abdomen: Soft, Non Tender, Non-Distended, No Hepato-splenomegaly Extremities: No edema, Capillary Refill Less than 3 Seconds Skin: No rashes, No breakdown Neurological: Cranial nerves II-XII grossly intact, Deep Tendon Reflexes 2+/4 and Symmetrical, Neuro grossly intact, Motor Exam 5/5 strength throughout, Sensory exam intact to light touch and pain Psych/Mental Status: Normal Affect, Appropriate Laboratory Results 03/01/21 12:40: Triglycerides 466 H, Cholesterol 267 H, LDL Cholesterol TNP, VLDL Cholesterol TNP, HDL Cholesterol 47, TSH 1.01 03/01/21 12:40: Hemoglobin A1c 5.2 Current Medications Acetaminophen (Acetaminophen 325 Mg Tablet) 650 mg PO Q6H PRN PRN PRN Reason: Pain Score 1-10/Temp > 100.7 F Last Admin: 03/01/21 20:53 Dose: 650 mg Documented by: Aspirin (Aspirin 81 Mg Tab.Chew) 81 mg PO DAILY@0800 [facility] Last Admin: 03/02/21 08:57 Dose: 81 mg Documented by: Atorvastatin Calcium (Atorvastatin Calcium 80 Mg Tablet) 80 mg PO QHS [facility] Last Admin: 03/01/21 20:54 Dose: 80 mg Documented by: Folic Acid (Folic Acid 1 Mg Tablet) 1 mg PO DAILY@0800 [facility] Last Admin: 03/02/21 08:58 Dose: 1 mg Documented by: Hydralazine HCl (Hydralazine 20 Mg/Ml Vial) 5 mg IV Q6H PRN PRN PRN Reason: SBP > 185 Last Admin: 03/02/21 03:53 Dose: 5 mg Documented by: Hydrochlorothiazide (Hydrochlorothiazide 12.5mg) 12.5 mg PO DAILY [facility] Last Admin: 03/02/21 08:59 Dose: 12.5 mg Documented by: Lisinopril (Lisinopril 20 Mg Tablet) 20 mg PO DAILY [facility] Last Admin: 03/02/21 08:59 Dose: 20 mg Documented by: Lorazepam (Lorazepam 1 Mg Tablet) 1 mg PO Q6H PRN PRN PRN Reason: Alcohol Withdrawal Metoprolol Tartrate (Metoprolol Tartrate 25 Mg Tablet) 25 mg PO BID [facility] Last Admin: 03/02/21 08:57 Dose: 25 mg Documented by: Ondansetron HCl (Ondansetron 4 Mg/2 Ml Vial) 4 mg IV Q8H PRN PRN PRN Reason: NAUSEA/VOMITING Senna/Docusate Sodium (Senna/Docusate Sodium 1 Tablet) 2 tablet PO BID PRN PRN PRN Reason: Constipation Sodium Chloride (0.9% Saline Lock 10 Ml Syringe) 10 - 40 ml IV UD PRN PRN Reason: SALINE FLUSH Thiamine HCl ([facility]iamine Hydrochloride 100 Mg Tablet) [facility] Last Admin: 03/02/21 08:57 Dose: 100 mg Documented by: Zolpidem Tartrate (Zolpidem Tartrate 5 Mg Tablet) 5 mg PO QHS PRN PRN PRN Reason: INSOMNIA Discharge Activity: Return to Normal Activity Call your doctor if you observe: Fever of 101 or Higher, Shortness of breath, Dizziness, Fainting spells, Swelling in the ankles, Chest pain, Increased palpitations (irregular heartbeat) Home Medications: Medications to take at Discharge Acetaminophen [Tylenol] 500 mg PO DAILY PRN 03/01/21 Aspirin/Caffeine [Back-Body Pain 500-32.5MG Cplt] 2 - 3 tablet PO TID PRN Aspirin [Aspirin, Baby] 81 mg PO DAILY@0800 #30 tab.chew 03/02/21 Atorvastatin Calcium [Lipitor] 40 mg PO QHS #30 tab 03/02/21 Lisinopril/Hydrochlorothiazide [Lisinopril-Hctz 10-12.5 mg Tab] 1 each PO DAILY #30 tablet 03/02/21 Following Prescriptions Were Given to Patient: Aspirin [Aspirin, Baby] 81 mg PO DAILY@0800 #30 tab.chew Transmission Status: Received by [facility]/pharmacy #[id number] Atorvastatin Calcium [Lipitor] 40 mg PO QHS #30 tab Transmission Status: Received by [facility]/pharmacy #[id number] Lisinopril/Hydrochlorothiazide [Lisinopril-Hctz 10-12.5 mg Tab] 1 each PO DAILY #30 tablet Transmission Status: Received by [facility]/pharmacy #[id number] Primary Care Physician: Care Physician,No Primary [Primary Care Provider] - Please follow up with your Primary Care Physician in: 3-5 days Patient Instructions: Controlling High Blood Pressure, ED High Blood Pressure ..., ED Heart Disease Risk Factors Disposition: Home Minutes spent on discharge:: 35 Patient Condition:: Stable Medical Necessity - Tobacco Use Smoking Status: Current every day smoker Tobacco Use: Cigarettes Meaningful Use Info Meaningful Use Diagnoses (Choose all that apply): None applicable Inpatient E&M: 69913 Disch Hosp
== END 2021-03-02 13:45 | disposition home or self-care (01) | DRG 305 ==
LOC: ED 13:50 → PCU 13:55
PROVIDERS: Admitting Provider Hospitalist; Emergency Provider Emergency Medicine; Visit Provider Family Medicine
DX: I16.0 Hypertensive urgency (principal); F17.210 Nicotine dependence, cigarettes, uncomplicated; F10.20 Alcohol dependence, uncomplicated; Y90.9 Presence of alcohol in blood, level not specified; R20.2 Paresthesia of skin; R53.1 Weakness; I10 Essential (primary) hypertension
CPT/HCPCS: 70450; 70551; 71045; 72148; 80048; 80061; 82962; 83036; 84443; 84484; 85025; 85610; 85730; 93005; 93306; 97161; 97165; 99285; 99406; J7030; A4216

== ENCOUNTER → 2021-07-30 14:56 | Outpatient (CLI) | payer OTHER, SELFPAY ==
[2021-07-30 18:32] LABS: Anion Gap 8 (5-15); BUN 11 mg/dL (7-18); BUN/Creat Ratio 12.2 RATIO (10-20); Calcium,Total 9.3 mg/dL (8.5-10.1); Chloride 105 mmol/L (98-107); Cholesterol 272 mg/dL (200); EST Glomerular Filtration Rate 95 mL/min (>60); Est Glom Filt Rate - Afr Amer 115 mL/min (>60); Glucose 139 mg/dL (74-106); High Density Lipoprotein 39 mg/dL; Sodium Level 138 mmol/L (136-145); Triglycerides 634 mg/dL
== END ==
PROVIDERS: PCP Family Medicine; Referring Provider Family Medicine; Visit Provider Family Medicine
DX: R32 Unspecified urinary incontinence (principal); I10 Essential (primary) hypertension
CPT/HCPCS: 36415; 80048; 80061; 84403

== ENCOUNTER 2021-11-25 10:38 | Outpatient (CLI) | payer OTHER, SELFPAY | END 2021-11-25 23:59 | disposition short-term general hospital (02) | LOC: MFPLAB 10:41 | PROVIDERS: PCP Family Medicine; Visit Provider Family Medicine | DX: E29.1 Testicular hypofunction (principal) | CPT/HCPCS: 36415; 84403 ==

== ENCOUNTER → 2022-06-06 | Outpatient (CLI) | payer OTHER, SELFPAY ==
[2022-06-06 12:41] LABS: Anion Gap 6 (5-15); BUN 8 mg/dL (7-18); BUN/Creat Ratio 9.5 RATIO (10-20); Calcium,Total 9.4 mg/dL (8.5-10.1); Chloride 107 mmol/L (98-107); Cholesterol 137 mg/dL (200); Creatinine, Serum 0.84 mg/dL (0.70-1.30); EST Glomerular Filtration Rate 102 mL/min (>60); Est Glom Filt Rate - Afr Amer 124 mL/min (>60); Glucose 111 mg/dL (74-106); High Density Lipoprotein 45 mg/dL; Potassium 4.1 mmol/L (3.5-5.1); Sodium Level 138 mmol/L (136-145); Triglycerides 175 mg/dL; Very Low Density Lipoprotein 35 mg/dL (5-40)
== END | disposition home or self-care (01) ==
LOC: MFPLAB 10:13
PROVIDERS: PCP Family Medicine; Referring Provider Family Medicine; Visit Provider Family Medicine
DX: E29.1 Testicular hypofunction (principal); I10 Essential (primary) hypertension
CPT/HCPCS: 36415; 80048; 80061; 84403

== ENCOUNTER → 2023-09-10 | Outpatient (CLI) | payer OTHER, SELFPAY ==
[2023-09-10 15:53] LABS: Anion Gap 7 (5-15); BUN 12 mg/dL (7-18); BUN/Creat Ratio 11.8 RATIO (10-20); Calcium,Total 9.6 mg/dL (8.5-10.1); Chloride 106 mmol/L (98-107); Cholesterol 218 mg/dL (200); Creatinine, Serum 1.02 mg/dL (0.70-1.30); EST Glomerular Filtration Rate 81 mL/min (>60); Est Glom Filt Rate - Afr Amer 98 mL/min (>60); Glucose 128 mg/dL (74-106); High Density Lipoprotein 44 mg/dL; Potassium 4.1 mmol/L (3.5-5.1); Sodium Level 138 mmol/L (136-145); Triglycerides 288 mg/dL; Very Low Density Lipoprotein 58 mg/dL (5-40)
[2023-09-10 16:41] LABS: PSA,Total - Annual Screen 7.06 ng/mL (0.00-4.00)
== END | disposition home or self-care (01) ==
PROVIDERS: Nurse Practitioner; PCP Family Medicine; Visit Provider Family Medicine
DX: I10 Essential (primary) hypertension (principal); Z12.5 Encounter for screening for malignant neoplasm of prostate
CPT/HCPCS: 36415; 80048; 80061; 84153; G0103